=== PATIENT | male | born 1995 | race African-American/Black ===

== ENCOUNTER 2018-03-04 06:37 | Emergency (ER) | payer OTHER ==
[2018-03-04] VITALS (19 sets, daily range): BP systolic 113–145; BP diastolic 42–98
[~2018-03-04] VITALS: Ht 175.3 cm; Wt 83.9 kg
[2018-03-04] MEDS ORDERED: LORazepam Inj 2mg/ml 1ml IV ONE (06:45)
[2018-03-04] MEDS ORDERED: DiphenhydrAMINE 50mg/ml Inj IVP ONE (06:45)
[2018-03-04] MEDS ORDERED: Haloperidol 5mg/ml Inj IM ONE (06:45)
--- NOTE | 2018-03-04 06:48 | Emergency Room Report ---
History of Present Illness General Chief Complaint: Behavioral Complaint Source: Patient, EMS Present Illness HPI Patient is brought in by police department and paramedics Patient has history of schizophrenia and was acting erratically and bizarre has not been taking his medications Family was concerned and called paramedics Patient presents in handcuffs and is extremely aggressive There was no reports of suicidal or homicidal thought, however the patient's thought process is somewhat erratic, and history of present illness is significantly limited Allergies: Coded Allergies: No Known Allergies (Unverified , 03/04/18) Patient History Limited by: medical condition Past Medical History: see triage record Pertinent Family History: none Reviewed Nursing Documentation: PMH: Agreed; PSxH: Agreed Review of Systems All Other Systems: limited - Other than the ones mentioned in the history of present illness all others are reviewed however they do stay limited due to the patient's mental status Physical Exam Sp02 EP Interpretation: reviewed, normal General Appearance: moderate distress - Agitated Head: normocephalic, atraumatic Eyes: bilateral eye PERRL, bilateral eye EOMI ENT: normal pharynx Neck: full range of motion, supple Respiratory: chest non-tender, lungs clear Cardiovascular #1: normal peripheral pulses, regular rate, rhythm Gastrointestinal: non tender, soft, no mass Musculoskeletal: normal inspection Neurologic: alert, responsive Psychiatric: other - agitated, yelling Skin: no rash, warm/dry Lymphatic: no adenopathy Medical Decision Making Restraint Reassesment Aslhey Lynn DO, have personally evaluated this patient. Laboratory tests have been reviewed and addressed accordingly. The patient is deemed to present a danger to themselves and/or others. This is based on the exam, history ( provided by patient, EMS/[employer] and/or family) and observed or reported behavior. Attempts for non-invasive measures have been considered and/or attempted, however, have been futile. It is in the best interest of the nursing staff, the patient, and others involved in this patient's care that behavioral restraints be applied. Patient evaluation reveals the following: Diagnostic Impression: Primary Impression: Behavioral disorder Additional Impression: Medical clearance for psychiatric admission ER Course Complex with multiple differentials considered Patient had extensive blood work initiated Patient is marijuana positive otherwise all blood work appropriate levels Patient continues to rest well And at this time is medically cleared for further psychiatric evaluation Labs Test 03/04/18 07:30 03/04/18 09:18 White Blood Count 5.4 K/UL (4.8-10.8) Red Blood Count 4.36 M/UL (4.70-6.10) Hemoglobin 12.0 G/DL (14.2-18.0) Hematocrit 37.9 % (42.0-52.0) Mean Corpuscular Volume 87 FL (80-99) Mean Corpuscular Hemoglobin 27.6 PG (27.0-31.0) Mean Corpuscular Hemoglobin Concent 31.8 G/DL (32.0-36.0) Red Cell Distribution Width 14.1 % (11.6-14.8) Platelet Count 247 K/UL (150-450) Mean Platelet Volume 6.4 FL (6.5-10.1) Neutrophils (%) (Auto) 68.6 % (45.0-75.0) Lymphocytes (%) (Auto) 21.2 % (20.0-45.0) Monocytes (%) (Auto) 7.2 % (1.0-10.0) Eosinophils (%) (Auto) 1.9 % (0.0-3.0) Basophils (%) (Auto) 1.1 % (0.0-2.0) Sodium Level 139 MMOL/L (136-145) Potassium Level 4.0 MMOL/L (3.5-5.1) Chloride Level 105 MMOL/L (98-107) Carbon Dioxide Level 22 MMOL/L (21-32) Anion Gap 12 mmol/L (5-15) Blood Urea Nitrogen 11 mg/dL (7-18) Creatinine 1.1 MG/DL (0.55-1.30) Estimat Glomerular Filtration Rate > 60 mL/min (>60) Glucose Level 83 MG/DL (74-106) Calcium Level 9.2 MG/DL (8.5-10.1) Total Bilirubin 0.4 MG/DL (0.2-1.0) Aspartate Amino Transf (AST/SGOT) 22 U/L (15-37) Alanine Aminotransferase (ALT/SGPT) 34 U/L (12-78) Alkaline Phosphatase 44 U/L (46-116) Total Protein 7.8 G/DL (6.4-8.2) Albumin 4.0 G/DL (3.4-5.0) Globulin 3.8 g/dL Albumin/Globulin Ratio 1.1 (1.0-2.7) Salicylates Level 0.9 ug/mL (2.8-20) Acetaminophen Level < 2 MCG/ML (10-30) Serum Alcohol < 3 mg/dL Urine Opiates Screen Negative (NEGATIVE) Urine Barbiturates Screen Negative (NEGATIVE) Phencyclidine (PCP) Screen Negative (NEGATIVE) Urine Amphetamines Screen Negative (NEGATIVE) Urine Benzodiazepines Screen Negative (NEGATIVE) Urine Cocaine Screen Negative (NEGATIVE) Urine Marijuana (THC) Screen Positive (NEGATIVE) Status: improved Disposition: XFER TO PSYCH HOSP/UNIT Condition: Improved Ashley Lerma DO Mar 04, 2018 06:48
[2018-03-04 07:54] LABS: BASOPHILS % (AUTO) 1.1 % (0.0-2.0); EOSINOPHILS % (AUTO) 1.9 % (0.0-3.0); HEMATOCRIT 37.9 % (42.0-52.0); LYMPHOCYTES % (AUTO) 21.2 % (20.0-45.0); MEAN CORPUSCULAR VOLUME 87 FL (80-99); MONOCYTES % (AUTO) 7.2 % (1.0-10.0); NEUTROPHILS % (AUTO) 68.6 % (45.0-75.0); PLATELET COUNT 247 K/UL (150-450); RED BLOOD COUNT 4.36 M/UL (4.70-6.10); RED CELL DISTRIBUTION WIDTH 14.1 % (11.6-14.8); WHITE BLOOD COUNT 5.4 K/UL (4.8-10.8)
[2018-03-04 08:22] LABS: ANION GAP 12 mmol/L (5-15); BLOOD UREA NITROGEN 11 mg/dL (7-18); CALCIUM 9.2 MG/DL (8.5-10.1); CARBON DIOXIDE 22 MMOL/L (21-32); CHLORIDE 105 MMOL/L (98-107); CREATININE 1.1 MG/DL (0.55-1.30); SODIUM 139 MMOL/L (136-145)
[2018-03-04 08:26] LABS: ALANINE AMINOTRANSFERASE 34 U/L (12-78); ALBUMIN/GLOBULIN RATIO 1.1 (1.0-2.7); ALKALINE PHOSPHATASE 44 U/L (46-116); ASPARTATE AMINO TRANSFERASE 22 U/L (15-37); BILIRUBIN,TOTAL 0.4 MG/DL (0.2-1.0)
[2018-03-04] MEDS ORDERED: BENZTROPINE ME0.5 MG PO (12:01)
[2018-03-04] MEDS ORDERED: RISPERDAL2 MG ORAL (12:01)
[2018-03-05 03:15] VITALS: BP 110/70
[2018-03-05 07:59] VITALS: BP 135/94
--- NOTE | 2018-03-05 10:40 | Consultation ---
History of Present Illness General Date patient seen: Mar 05, 2018 Chief Complaint: Behavioral Complaint Present Illness HPI 22 yo aa male with hx of schizophrenia and cannabis use who was bib [employer]. the pt has been off his meds for some time. the pt is not suicidal or homicidal. He was laughing inappropriately. the pt was calm during my eval. the pt initially disagreed and was reluctant to take the haldol dec. the pt agreed later and received the dec Allergies: Coded Allergies: No Known Allergies (Unverified , 03/04/18) Medication History Scheduled Benztropine Mesylate* (Cogentin*), 2 MG PO BID, (Reported) Risperidone (Risperidone), 2 MG ORAL DAILY Risperidone* (Risperdal*), 2 MG ORAL DAILY, (Reported) Patient History Limited by: medical condition History Provided By: Patient, Medical Record Healthcare decision maker Resuscitation status Advanced Directive on File Past Medical/Surgical History Past Medical/Surgical History: (1) Behavioral disorder (2) Medical clearance for psychiatric admission Review of Systems Psychiatric: Reports: prior hx, anxiety, depressed feelings, emotional problems , hallucinations Physical Exam General Appearance: no apparent distress, alert Neurologic: oriented x 3, responsive, depressed affect Last 24 Hour Vital Signs Date Time Temp Pulse Resp B/P (MAP) Pulse Ox O2 Delivery O2 Flow Rate FiO2 03/05/18 07:59 98.4 90 17 135/94 99 Room Air 98.4 03/05/18 03:15 97.9 75 17 110/70 98 Room Air 97.9 03/04/18 23:15 98.2 83 17 113/57 98 Room Air 98.2 03/04/18 19:22 98.1 82 17 138/71 98 Room Air 98.1 03/04/18 18:41 97.9 90 17 142/66 100 Room Air 97.9 03/04/18 16:36 97.7 76 16 132/81 100 Room Air 97.7 03/04/18 14:29 98.0 80 15 117/60 98 Room Air 98.0 03/04/18 12:00 98.1 75 11 145/80 100 Room Air 98.1 Intake and Output 03/04/18 03/05/18 19:00 07:00 Intake Total 300 ml 1000 ml Output Total 500 ml Balance -200 ml 1000 ml Intake Oral 300 ml 1000 ml Output Urine Total 500 ml # Voids 1 Height (Feet): 5 Height (Inches): 9.00 Weight (Pounds): 185 Assessment/Plan Status: stable Assessment/Plan schizophrenia haldol dec 100mg x1 time risperdal 2mg qhs the pt is not hold able the pt is not meeting the criteria for 5150 Charla Sesay MD Mar 05, 2018 10:40
[2018-03-05] MEDS ORDERED: RISPERIDONE2 MG ORAL (10:58)
[2018-03-05] MEDS ORDERED: Haloperidol Decanoate 50mg Inj IM ONE (11:30)
[2018-03-05 12:05] VITALS: BP 129/87
[2018-03-05 15:29] VITALS: BP 119/76
== END 2018-03-05 15:29 | disposition home or self-care (01) ==
LOC: EDBD 06:37 → EMR 07:24
DX: F91.9 Conduct disorder, unspecified (principal); F20.9 Schizophrenia, unspecified
CPT/HCPCS: 36415; 80053; 80307; 80329; 85025; 96372; 96374; 96375; 99284; J1200; J1630; J1631

== ENCOUNTER 2020-04-05 21:55 | Inpatient (IN) | payer MEDICARE, OTHER ==
[~2020-04-05] VITALS: Ht 175.3 cm; Wt 90.5 kg
[~2020-04-05 21:55] MED LIST: BENZTROPINE ME0.5 MG PO; RISPERDAL2 MG ORAL; RISPERIDONE2 MG ORAL; UNOBMED
[2020-04-05 22:05] VITALS: BP 144/88
--- NOTE | 2020-04-05 22:05 | NUR ---
ED Nurse Note: Pt brought into ED by [facility] 67 and [employer] for erractic behavior at home. Per [facility], on scene pt was acting extremely hostile and aggressive. Pt was kicking trash cans and punching car windows with his fists. Patient's mother called 911 because patient had also stated "I don't want to live in the world anymore". No suicidal plan noted at the moment. [employer] is placing patient on 5150 psych hold at this time due to suicidal statement and behavior. He is unable to guarantee his own safety and safety of others at this time. According to report from paramedics, pt has not been taking his medications. Pt has hx of schizophrenia and normally takes benzotropine, risperidone and divalproex. Due to behavior in the field, pt was given 5mg versed IM by [facility] collaborating supervising physician. Upon ED arrival, pt is in hand cuffs on the gurney; [employer] bedside. Pt is not cooperative and not following commands. Pt is rambling words currently and will not answer questions. Pt is crying and appears severely anxious. Unable to complete full assessment at this time. Will reassess when pt is calm. Pt placed in psych gown and belongings taken from pt. All psychiatric/suicidal precuations in place; safety measures met. RN bedside monitoring pt. Will continue to monitor for change in condition.
[2020-04-05] MEDS ORDERED: Haloperidol 5mg/ml Inj ONE (22:23)
[2020-04-05] MEDS ORDERED: LORazepam Inj 2mg/ml 1ml ONE (22:23)
[2020-04-05] MEDS ORDERED: DiphenhydrAMINE 50mg/ml Inj ONE (22:23)
[2020-04-05] MEDS ORDERED: DiphenhydrAMINE 50mg/ml Inj IM ONE (22:30)
[2020-04-05] MEDS ORDERED: LORazepam Inj 2mg/ml 1ml IM ONE (22:30)
[2020-04-05] MEDS ORDERED: Haloperidol 5mg/ml Inj IM ONE (22:30)
[2020-04-05 22:43] LABS: BASOPHILS % (AUTO) 1.9 % (0.0-2.0); EOSINOPHILS % (AUTO) 1.4 % (0.0-3.0); HEMATOCRIT 43.8 % (42.0-52.0); HEMOGLOBIN 14.2 G/DL (14.2-18.0); LYMPHOCYTES % (AUTO) 20.8 % (20.0-45.0); MEAN CORPUSCULAR VOLUME 87 FL (80-99); MONOCYTES % (AUTO) 9.8 % (1.0-10.0); NEUTROPHILS % (AUTO) 66.1 % (45.0-75.0); PLATELET COUNT 265 K/UL (150-450); RED BLOOD COUNT 5.05 M/UL (4.70-6.10); RED CELL DISTRIBUTION WIDTH 14.3 % (11.6-14.8); WHITE BLOOD COUNT 8.8 K/UL (4.8-10.8)
[2020-04-05 22:56] LABS: ALANINE AMINOTRANSFERASE 183 U/L (12-78); ALBUMIN 4.5 G/DL (3.4-5.0); ALBUMIN/GLOBULIN RATIO 0.9 (1.0-2.7); ALKALINE PHOSPHATASE 67 U/L (46-116); ANION GAP 16 mmol/L (5-15); ASPARTATE AMINO TRANSFERASE 224 U/L (15-37); BILIRUBIN,TOTAL 0.5 MG/DL (0.2-1.0); BLOOD UREA NITROGEN 37 mg/dL (7-18); CALCIUM 9.6 MG/DL (8.5-10.1); CARBON DIOXIDE 21 MMOL/L (21-32); CHLORIDE 94 MMOL/L (98-107); CREATININE 2.4 MG/DL (0.55-1.30); SODIUM 131 MMOL/L (136-145)
--- NOTE | 2020-04-05 23:05 | NUR ---
ED Nurse Note: Pt is sleeping at this time, NAD. All suicidial precuations in place with safety measures met. RN bedside monitoring pt.
--- NOTE | 2020-04-05 23:40 | NUR ---
ED Nurse Note: Patient BUN/creatinine elevated. Will administer IV fluids and redraw labs as ordered by ERMMitesh. Pt is not medically cleared for inpatient psych at this time.
--- NOTE | 2020-04-06 00:19 | Emergency Room Report ---
History of Present Illness General Chief Complaint: Behavioral Complaint Source: Patient, EMS, [employer] Enforcement Present Illness HPI 24-year-old male presents to ED for behavioral evaluation. Brought in by EMS in [employer] from home. Mother was concerned because patient appeared to be aggressive. History of schizophrenia and bipolar. Reportedly not compliant with his meds. Given Versed IM per EMS. Patient not cooperative with exam. Unwilling to state whether he used any drugs or if he is compliant with his medications. No other aggravating relieving factors. No other associated symptoms Allergies: Coded Allergies: No Known Allergies (Unverified , 03/04/18) UNABLE TO ASSESS (Unverified , 10/28/18) COVID-19 Screening Contact w/high risk pt: No Experienced COVID-19 symptoms?: No COVID-19 Testing performed HEMATOLOGIST: No Patient History Past Medical History: psych hx Past Surgical History: none Pertinent Family History: none Social History: Denies: smoking, alcohol use, drug use Immunizations: UTD Reviewed Nursing Documentation: PMH: Agreed; PSxH: Agreed Nursing Documentation-PMH History Of Psychiatric Problem: Yes - schizo, substance abuse Review of Systems All Other Systems: negative except mentioned in HPI Physical Exam Vital Signs Date Time Temp Pulse Resp B/P (MAP) Pulse Ox O2 Delivery O2 Flow Rate FiO2 04/05/20 22:01 98.1 89 22 144/88 (106) 97 Room Air Sp02 EP Interpretation: reviewed, normal General Appearance: GCS 15, non-toxic, other - agitated/combative Head: normocephalic, atraumatic Eyes: bilateral eye normal inspection, bilateral eye PERRL ENT: hearing grossly normal, normal pharynx, no angioedema, normal voice Neck: full range of motion, supple/symm/no masses Respiratory: chest non-tender, lungs clear, normal breath sounds, speaking full sentences Cardiovascular #1: regular rate, rhythm, no edema Cardiovascular #2: 2+ carotid (R), 2+ carotid (L), 2+ radial (R), 2+ radial (L) , 2+ dorsalis pedis (R), 2+ dorsalis pedis (L) Gastrointestinal: normal bowel sounds, non tender, soft, non-distended, no guarding, no rebound Rectal: deferred Genitourinary: normal inspection, no CVA tenderness Musculoskeletal: back normal, normal range of motion, gait/station normal, non- tender Neurologic: other - agitated Psychiatric: anxious, other - agitated Reflexes: 3+ bicep (R), 3+ bicep (L), 3+ tricep (R), 3+ tricep (L), 3+ knee (R) , 3+ knee (L) Skin: no rash Lymphatic: no adenopathy Medical Decision Making Diagnostic Impression: Primary Impression: Schizophrenia Qualified Codes: F20.9 - Schizophrenia, unspecified Additional Impression: Renal failure Qualified Codes: N17.9 - Acute kidney failure, unspecified ER Course 24-year-old male presents for psychiatric evaluation. Differentialschizophrenia, substance abuse, EtOH Placed on stretcher. After initial history and physical restraints applied. Patient given Haldol, Benadryl, Ativan. Labsno leukocytosis, hemoglobin/hematocrit stable, BUN/creatinine elevated. Drug screen positive for benzos and marijuana. Patient given multiple fluid boluses with BUN/creatinine remains elevated. patient cannot be medically cleared for PET eval Patient will be admitted to Dr. Yanes's service. IV hydration continued. Dr Sesay (psychiatry) will be consulted. diagnosis - schizophrenia, renal failure admitted to floor in serious condition Laboratory Tests Test 04/05/20 22:15 04/05/20 22:55 04/06/20 02:13 White Blood Count 8.8 K/UL (4.8-10.8) Red Blood Count 5.05 M/UL (4.70-6.10) Hemoglobin 14.2 G/DL (14.2-18.0) Hematocrit 43.8 % (42.0-52.0) Mean Corpuscular Volume 87 FL (80-99) Mean Corpuscular Hemoglobin 28.0 PG (27.0-31.0) Mean Corpuscular Hemoglobin Concent 32.3 G/DL (32.0-36.0) Red Cell Distribution Width 14.3 % (11.6-14.8) Platelet Count 265 K/UL (150-450) Mean Platelet Volume 9.5 FL (6.5-10.1) Neutrophils (%) (Auto) 66.1 % (45.0-75.0) Lymphocytes (%) (Auto) 20.8 % (20.0-45.0) Monocytes (%) (Auto) 9.8 % (1.0-10.0) Eosinophils (%) (Auto) 1.4 % (0.0-3.0) Basophils (%) (Auto) 1.9 % (0.0-2.0) Sodium Level 131 MMOL/L (136-145) L 137 MMOL/L (136-145) Potassium Level 4.0 MMOL/L (3.5-5.1) 3.3 MMOL/L (3.5-5.1) L Chloride Level 94 MMOL/L (98-107) L 103 MMOL/L (98-107) Carbon Dioxide Level 21 MMOL/L (21-32) 24 MMOL/L (21-32) Anion Gap 16 mmol/L (5-15) H 10 mmol/L (5-15) Blood Urea Nitrogen 37 mg/dL (7-18) H 35 mg/dL (7-18) H Creatinine 2.4 MG/DL (0.55-1.30) H 2.1 MG/DL (0.55-1.30) H Estimat Glomerular Filtration Rate 40.2 mL/min (>60) 46.9 mL/min (>60) Glucose Level 123 MG/DL (74-106) H 78 MG/DL (74-106) Calcium Level 9.6 MG/DL (8.5-10.1) 8.1 MG/DL (8.5-10.1) L Total Bilirubin 0.5 MG/DL (0.2-1.0) 0.4 MG/DL (0.2-1.0) Aspartate Amino Transf (AST/SGOT) 224 U/L (15-37) H 143 U/L (15-37) H Alanine Aminotransferase (ALT/SGPT) 183 U/L (12-78) H 133 U/L (12-78) H Alkaline Phosphatase 67 U/L (46-116) 46 U/L (46-116) Total Protein 9.3 G/DL (6.4-8.2) H 6.8 G/DL (6.4-8.2) Albumin 4.5 G/DL (3.4-5.0) 3.2 G/DL (3.4-5.0) L Globulin 4.8 g/dL 3.6 g/dL Albumin/Globulin Ratio 0.9 (1.0-2.7) L 0.9 (1.0-2.7) L Salicylates Level 4.5 ug/mL (2.8-20) Acetaminophen Level < 2 MCG/ML (10-30) L Serum Alcohol < 3 mg/dL Urine Opiates Screen Negative (NEGATIVE) Urine Barbiturates Screen Negative (NEGATIVE) Phencyclidine (PCP) Screen Negative (NEGATIVE) Urine Amphetamines Screen Negative (NEGATIVE) Urine Benzodiazepines Screen Positive (NEGATIVE) H Urine Cocaine Screen Negative (NEGATIVE) Urine Marijuana (THC) Screen Positive (NEGATIVE) H Last Vital Signs Date Time Temp Pulse Resp B/P (MAP) Pulse Ox O2 Delivery O2 Flow Rate FiO2 04/05/20 22:05 98.1 89 22 144/88 97 Room Air Status: improved Disposition: ADMITTED INPATIENT Condition: Serious Referrals: NOT CHOSEN IPA/,REFERRING (PCP) Jose Lopez MD Apr 06, 2020 00:19
--- NOTE | 2020-04-06 01:20 | NUR ---
ED Nurse Note: Patient is awake and crying at this time. He is still not receptive to answering all RN questions, but when asked if he wants to harm himself or others, patient states no. Patient reports he did not tell his mother he wanted to kill himself. Pt reoriented and explained situation. Provided with blanket for comfort and repositioned. RN bedside with safety measures in place; will continue to closely monitor.
[2020-04-06 02:33] LABS: ANION GAP 10 mmol/L (5-15); BLOOD UREA NITROGEN 35 mg/dL (7-18); CALCIUM 8.1 MG/DL (8.5-10.1); CARBON DIOXIDE 24 MMOL/L (21-32); CHLORIDE 103 MMOL/L (98-107); CREATININE 2.1 MG/DL (0.55-1.30); POTASSIUM 3.3 MMOL/L (3.5-5.1); SODIUM 137 MMOL/L (136-145)
[2020-04-06 02:38] LABS: ALANINE AMINOTRANSFERASE 133 U/L (12-78); ALBUMIN 3.2 G/DL (3.4-5.0); ALBUMIN/GLOBULIN RATIO 0.9 (1.0-2.7); ALKALINE PHOSPHATASE 46 U/L (46-116); ASPARTATE AMINO TRANSFERASE 143 U/L (15-37); BILIRUBIN,TOTAL 0.4 MG/DL (0.2-1.0)
[2020-04-06 03:00] VITALS: BP 123/73
--- NOTE | 2020-04-06 03:00 | NUR ---
ED Nurse Note: Pt woke up in a calm state requesting to use restroom. Pt provided with toileting. Pt also provided with oral fluids and nourishment. Pt is tolerating well and is not acting aggressive or erratic at this time. RN remains bedside; will continue to closely monitor.
--- NOTE | 2020-04-06 04:00 | NUR ---
ED Nurse Note: Patient is awake and alert. Patient is able to have calm conversation with RN. Pt is not displaying aggressive behavior at this time, but would note that impulse control is still poor. He is breathing normal and unlabored. RN bedside; all suicide precautions in place, will continue to closely monitor pt.
[2020-04-06] MEDS ORDERED: LORazepam Inj 2mg/ml 1ml ONE (04:33)
[2020-04-06] MEDS ORDERED: LORazepam Inj 2mg/ml 1ml IV ONE (04:45)
--- NOTE | 2020-04-06 04:50 | NUR ---
ED Nurse Note: Pt is stable for admission to [facility] unit at this time per ERMD. Pt is in no acute distress at time of leaving ED. Patient's breathing is normal and unlabored. Vital signs are stable. Patient taken to unit by RN and thao via [email or web address]. Pt took all belongings. IVs patent and intact.
--- NOTE | 2020-04-06 04:55 | NUR ---
NURSE NOTES: Received report from ARIE Garcia. Pt arrived to unit at 0455 via gurney from ED. No acute distress noted. Oriented to room/ unit. Iv intact and patent. Pt is not responding to questions. Refused vitals.Belonging checked. Side rails upx3. Call light within reach. Will continue to monitor
[2020-04-06] MEDS ORDERED: LORazepam Inj 2mg/ml 1ml IV PRN (05:00)
[2020-04-06] MEDS ORDERED: Miralax 17gm pkt ORAL PRN (05:00)
--- NOTE | 2020-04-06 05:38 | History and Physical ---
History of Present Illness General Reason for Hospitalization: Behavioral Complaint Present Illness HPI This is a 24yo M who reported via EMS for behavior disturbances. Patient was given Versed in route. He has a past medical history for schizophrenia. His mother was concerned due his agitation. Patient was placed on a 5150 and inpatient psychiatrist was consulted. He has associated symptoms for anxiety, non compliance on medications and agitation. His initial labs were mostly noncontributory despite an elevation of serum creatinine of 2.5mg/dl. He denies lithium. Patient was given IVF in ED with some improvement. Otherwise patient is admitted due to 5150. Allergies: Coded Allergies: No Known Allergies (Unverified , 03/04/18) UNABLE TO ASSESS (Unverified , 10/28/18) COVID-19 Screening Contact w/high risk pt: No Experienced COVID-19 symptoms?: No Medication History Scheduled Benztropine Mesylate* (Cogentin*), 2 MG PO BID, (Reported) Risperidone (Risperidone), 2 MG ORAL DAILY Risperidone* (Risperdal*), 2 MG ORAL DAILY, (Reported) Miscellaneous Medications Unable to Obtain Medications (Unable To Obtain Meds), (Reported) Patient History Healthcare decision maker Resuscitation status Advanced Directive on File Review of Systems Psychiatric: Reports: anxiety, emotional problems Physical Exam General Appearance: WD/WN, alert, mild distress Lines, tubes and drains: peripheral HEENT: normocephalic Neck: non-tender, normal alignment, supple Respiratory/Chest: chest wall non-tender, lungs clear Cardiovascular/Chest: normal peripheral pulses, normal rate, regular rhythm, no JVD Abdomen: normal bowel sounds, non tender, soft, no organomegaly Extremities: normal range of motion, non-tender Skin Exam: warm/dry Neurologic: pattern fitter II-XII grossly normal Last 24 Hour Vital Signs Date Time Temp Pulse Resp B/P (MAP) Pulse Ox O2 Delivery O2 Flow Rate FiO2 04/06/20 05:14 Room Air 04/06/20 04:50 98.3 78 18 128/77 98 Room Air 04/06/20 03:00 98.1 73 18 123/73 99 Room Air 04/05/20 22:05 98.1 89 22 144/88 97 Room Air 04/05/20 22:05 89 22 Room Air 04/05/20 22:01 98.1 89 22 144/88 (106) 97 Room Air Intake and Output 04/05/20 04/06/20 19:00 07:00 Intake Total 4300 ml Output Total 600 ml Balance 3700 ml Intake Oral 300 ml IV Total 4000 ml Output Urine Total 600 ml # Voids 1 Laboratory Tests Test 04/05/20 22:15 04/05/20 22:55 04/06/20 02:13 White Blood Count 8.8 K/UL (4.8-10.8) Red Blood Count 5.05 M/UL (4.70-6.10) Hemoglobin 14.2 G/DL (14.2-18.0) Hematocrit 43.8 % (42.0-52.0) Mean Corpuscular Volume 87 FL (80-99) Mean Corpuscular Hemoglobin 28.0 PG (27.0-31.0) Mean Corpuscular Hemoglobin Concent 32.3 G/DL (32.0-36.0) Red Cell Distribution Width 14.3 % (11.6-14.8) Platelet Count 265 K/UL (150-450) Mean Platelet Volume 9.5 FL (6.5-10.1) Neutrophils (%) (Auto) 66.1 % (45.0-75.0) Lymphocytes (%) (Auto) 20.8 % (20.0-45.0) Monocytes (%) (Auto) 9.8 % (1.0-10.0) Eosinophils (%) (Auto) 1.4 % (0.0-3.0) Basophils (%) (Auto) 1.9 % (0.0-2.0) Sodium Level 131 MMOL/L (136-145) L 137 MMOL/L (136-145) Potassium Level 4.0 MMOL/L (3.5-5.1) 3.3 MMOL/L (3.5-5.1) L Chloride Level 94 MMOL/L (98-107) L 103 MMOL/L (98-107) Carbon Dioxide Level 21 MMOL/L (21-32) 24 MMOL/L (21-32) Anion Gap 16 mmol/L (5-15) H 10 mmol/L (5-15) Blood Urea Nitrogen 37 mg/dL (7-18) H 35 mg/dL (7-18) H Creatinine 2.4 MG/DL (0.55-1.30) H 2.1 MG/DL (0.55-1.30) H Estimat Glomerular Filtration Rate 40.2 mL/min (>60) 46.9 mL/min (>60) Glucose Level 123 MG/DL (74-106) H 78 MG/DL (74-106) Calcium Level 9.6 MG/DL (8.5-10.1) 8.1 MG/DL (8.5-10.1) L Total Bilirubin 0.5 MG/DL (0.2-1.0) 0.4 MG/DL (0.2-1.0) Aspartate Amino Transf (AST/SGOT) 224 U/L (15-37) H 143 U/L (15-37) H Alanine Aminotransferase (ALT/SGPT) 183 U/L (12-78) H 133 U/L (12-78) H Alkaline Phosphatase 67 U/L (46-116) 46 U/L (46-116) Total Protein 9.3 G/DL (6.4-8.2) H 6.8 G/DL (6.4-8.2) Albumin 4.5 G/DL (3.4-5.0) 3.2 G/DL (3.4-5.0) L Globulin 4.8 g/dL 3.6 g/dL Albumin/Globulin Ratio 0.9 (1.0-2.7) L 0.9 (1.0-2.7) L Salicylates Level 4.5 ug/mL (2.8-20) Acetaminophen Level < 2 MCG/ML (10-30) L Serum Alcohol < 3 mg/dL Urine Opiates Screen Negative (NEGATIVE) Urine Barbiturates Screen Negative (NEGATIVE) Phencyclidine (PCP) Screen Negative (NEGATIVE) Urine Amphetamines Screen Negative (NEGATIVE) Urine Benzodiazepines Screen Positive (NEGATIVE) H Urine Cocaine Screen Negative (NEGATIVE) Urine Marijuana (THC) Screen Positive (NEGATIVE) H Height (Feet): 5 Height (Inches): 9.00 Weight (Pounds): 200 Medications Current Medications Medications (Trade) Dose Ordered Sig/Albert Route PRN Reason Start Time Stop Time Status Last Admin Dose Admin Acetaminophen (Tylenol) 650 mg Q4H PRN ORAL Mild Pain (Pain Scale 1-3) 04/06/20 05:00 05/06/20 04:59 Acetaminophen (Tylenol) 650 mg Q4H PRN ORAL Temp >100.5 04/06/20 05:00 05/06/20 04:59 Dextrose (Dextrose 50%) 25 ml Q30M PRN IV Hypoglycemia 04/06/20 05:00 07/05/20 04:59 Dextrose (Dextrose 50%) 50 ml Q30M PRN IV Hypoglycemia 04/06/20 05:00 07/05/20 04:59 Lorazepam (Ativan 2mg/ml 1ml) 0.5 mg Q4H PRN IV For Anxiety 04/06/20 05:00 04/13/20 04:59 Ondansetron HCl (Zofran) 4 mg Q6H PRN IVP Nausea & Vomiting 04/06/20 05:00 05/06/20 04:59 Polyethylene Glycol (Miralax) 17 gm HSPRN PRN ORAL Constipation 04/06/20 05:00 05/06/20 04:59 Risperidone (RisperDAL) 2 mg DAILY ORAL 04/06/20 09:00 05/21/20 08:59 Sodium 1,000 ml @ 100 mls/hr Q10H IV 04/06/20 06:00 05/06/20 05:59 Assessment/Plan Problem List: (1) Schizophrenia Assessment & Plan: ORDERS - Resume home medication - Ativan for agitation/anxiety - Appreciate Dr. Sesay recommendations ICD Codes: F20.9 - Schizophrenia, unspecified SNOMED: [id number] Qualifiers: Qualified Codes: F20.9 - Schizophrenia, unspecified (2) Renal failure Assessment & Plan: Some improvement with IVF likely an underlying prerenal component but will still needs a complete workup. ORDERS - Continue with 0.45% NS with 20meq kcl - UA with microscopic - Obtain UC - Obtain CK - BENTLEY to r/o obstrution - Repeat BMP in 24hrs ICD Codes: N19 - Unspecified kidney failure SNOMED: [id number] Qualifiers: Qualified Codes: N17.9 - Acute kidney failure, unspecified Santhosh Washington D.O. Apr 06, 2020 05:38
[2020-04-06] MEDS: 1/2NS w/KCl 20mEq 1000ml 1,000 ML IV SCH ×2 (06:00→16:00)
--- NOTE | 2020-04-06 07:05 | NUR ---
NURSE NOTES: Received report from Olesya RN, pt sleeping , breaths regular unlabored, no s/s of distress on RA . I.V access on RT hand 20G , with i.v fluids , patent asymptomatic intact , bed in low locked position , side rails upX2, call light with in reach , will continue to Monitor
--- NOTE | 2020-04-06 07:47 | NUR ---
NURSE HAND-OFF: Important Events on Shift:Pt ignoring questions. Refused vitals Patient Status: stable Diet: Reg Pending Orders: Pending Results/Labs: urinalysis/ [employer]&CMP on 04/07 Pending MD notification: Latest Vital Signs: Temperature 98.3 , Pulse 78 , B/P 128 /77 , Respiratory Rate 18 , O2 SAT 98 , Room Air, O2 Flow Rate . Vital Sign Comment: Latest Helton Fall Score: 0 Fall Risk: Low Risk Safety Measures: Call light Within Reach, Bed Alarm , Side Rails Side Rails x2, Bed position Low and Locked. Fall Precautions: Report given to ARIE Mcadams.
[2020-04-06 08:00] VITALS: BP 123/63
[2020-04-06 08:37] LABS: CREATINE KINASE 4381 U/L (26-308)
--- NOTE | 2020-04-06 10:25 | NUR ---
NURSE NOTES: Pt anxiouus and requesting to leave and go home, explained to rthe pt that h Addendum: 04/06/20 at 1914 by Pema Griffin RN NURSE NOTES: Pt anxious, and pacing in the room , provided remote to pt to watch tv but still it did not help, explained to pt that he was unstable to go home but insisted that he had to go, i got the PRN Ativan and pt refused the medication, pt attempted to get on the elevator, notified security and they came up, and attempted to calm pt down, but was unsuccessful , notified charge nurse about pt condition i called and spoke with DR Holden regarding pt change of condition, told me to call DR Sesay
--- NOTE | 2020-04-06 10:32 | NUR ---
NURSE NOTES: Called and spoke with DR Sesay, regarding pt condition and explained pt behavior to DR. NOAM Kim orders received and carried
--- NOTE | 2020-04-06 10:40 | NUR ---
NURSE NOTES: called and left msg for DR Sesay regarding pt attempt to ,leave AMA
[2020-04-06] MEDS ORDERED: LORazepam 1mg tab ORAL PRN (10:45)
--- NOTE | 2020-04-06 11:31 | NUR ---
NURSE NOTES: Patient eloped unit. Called code [place]. Textile Designer and security notified. Spoke to transportation director regarding 5150 hold and patient. Per special investigation unit investigator: when patient admit to hospital, they are not on hold anymore.
--- NOTE | 2020-04-06 11:36 | NUR ---
NURSE NOTES: Security brought patient back to unit. Provide reality orientation and educate importance of treatment and staying hospital. Patient still trying to leave unit. Notified animal control supervisor. Will notify .
--- NOTE | 2020-04-06 11:40 | General Progress Note ---
Progress Note Progress Note I assumed care of this patient. I agree with plan of care. I did extensive chart review of vitals, labs, flowcharts, documents, imaging. I also had multiple conversations with patients mother to obtain history. Consulted Psych and nephrology. I spent 30 minutes on chart review as above with additional time examine the patient. Jacob Holden M.D. Apr 06, 2020 11:40
--- NOTE | 2020-04-06 11:41 | NUR ---
NURSE NOTES: Received call back from Dr Sesay, orders for cocktail received and carried
[2020-04-06] MEDS ORDERED: DiphenhydrAMINE 50mg/ml Inj IM SCH (11:45)
[2020-04-06] MEDS ORDERED: LORazepam Inj 2mg/ml 1ml IM SCH (11:45)
[2020-04-06] MEDS ORDERED: Haloperidol 5mg/ml Inj IM SCH (11:45)
--- NOTE | 2020-04-06 11:46 | NUR ---
TRACK WALKER NOTE Pt presents as A&O 3x and restless. Pt was unable to focus on the questions and SW redirected pt several times. Pt resides w/ his mother at [address] , [place] [address]. RUDS positive for Benzo and THC. PT reports tobacco use. Per chart review, pt has hx of Schizophrenia. Pt denies SI/HI. Emergency contact listed as his mother, Gilda Goldman [phone]. Pt does not share any foster care social worker concerns/needs at this time.
[2020-04-06 12:00] VITALS: BP 115/74
--- NOTE | 2020-04-06 13:10 | NUR ---
CASE MANAGEMENT: INITIAL REVIEW 24YR OLD MALE BIBA FROM HOME CC:BEHAVIOR COMPLAINTS; SI:SUICIDAL IDEATION WITH PLAN. RENAL FAILURE 98.1 89 22 144/88 97% ON RA NA+131 CL-94 ANION GAP 16 BUN/CREAT 37/2.4 BG 123 AST/ALT 224/183 IS:BENADRYL IM X1 HALDOL IM X1 ATIVAN IM X1 IVF NS BOLUS X4 \: 3E MED SURG UNIT CASE MANAGEMENT: REVIEW 04/06/20 SI:SUICIDAL IDEATION WITH PLAN. RENAL FAILURE . RHABDOMYOLYSIS 98.8.3 78 18 128/77 98% ON RA CK 4381 K+3.3 BUN/CREAT 35/2.1 CA+8.1 AST/ALT 143/133 ALB 3.2 IS:BENADRYL IM X1 HALDOL IM X1 ATIVAN IM X1 IV NS @100ML/HR RISPERIDONE PO QD ATIVAN Q4HR/PRN \: 3E MED SURG UNIT PLAN: HYDRATE SW CONSULT NEURO CHECK BEHAVIOR CHECKS
--- NOTE | 2020-04-06 13:16 | Consultation ---
History of Present Illness General Chief Complaint: Behavioral Complaint Present Illness HPI 24yo M who reported via EMS for behavior disturbances. Patient was given Versed in route. He has a past medical history for schizophrenia. His mother was concerned due his agitation. Patient was placed on a 5150 and inpatient psychiatrist was consulted. He has associated symptoms for anxiety, non compliance on medications and agitation. His initial labs were mostly noncontributory despite an elevation of serum creatinine of 2.5mg/dl. He denies lithium. Patient was given IVF in ED with some improvement. Otherwise patient is admitted due to 5150. Allergies: Coded Allergies: No Known Allergies (Unverified , 03/04/18) UNABLE TO ASSESS (Unverified , 10/28/18) Medication History Scheduled Benztropine Mesylate* (Cogentin*), 2 MG PO BID, (Reported) Risperidone (Risperidone), 2 MG ORAL DAILY Risperidone* (Risperdal*), 2 MG ORAL DAILY, (Reported) Miscellaneous Medications Unable to Obtain Medications (Unable To Obtain Meds), (Reported) Patient History Healthcare decision maker Resuscitation status Advanced Directive on File Physical Exam Last 24 Hour Vital Signs Date Time Temp Pulse Resp B/P (MAP) Pulse Ox O2 Delivery O2 Flow Rate FiO2 04/06/20 09:00 Room Air 04/06/20 05:14 Room Air 04/06/20 04:50 98.3 78 18 128/77 98 Room Air 04/06/20 03:00 98.1 73 18 123/73 99 Room Air 04/05/20 22:05 98.1 89 22 144/88 97 Room Air 04/05/20 22:05 89 22 Room Air 04/05/20 22:01 98.1 89 22 144/88 (106) 97 Room Air Intake and Output 04/05/20 04/06/20 18:59 06:59 Intake Total 4350 ml Output Total 600 ml Balance 3750 ml Intake Oral 350 ml IV Total 4000 ml Output Urine Total 600 ml # Voids 2 Laboratory Tests Test 04/05/20 22:15 04/05/20 22:55 04/06/20 02:13 White Blood Count 8.8 K/UL (4.8-10.8) Red Blood Count 5.05 M/UL (4.70-6.10) Hemoglobin 14.2 G/DL (14.2-18.0) Hematocrit 43.8 % (42.0-52.0) Mean Corpuscular Volume 87 FL (80-99) Mean Corpuscular Hemoglobin 28.0 PG (27.0-31.0) Mean Corpuscular Hemoglobin Concent 32.3 G/DL (32.0-36.0) Red Cell Distribution Width 14.3 % (11.6-14.8) Platelet Count 265 K/UL (150-450) Mean Platelet Volume 9.5 FL (6.5-10.1) Neutrophils (%) (Auto) 66.1 % (45.0-75.0) Lymphocytes (%) (Auto) 20.8 % (20.0-45.0) Monocytes (%) (Auto) 9.8 % (1.0-10.0) Eosinophils (%) (Auto) 1.4 % (0.0-3.0) Basophils (%) (Auto) 1.9 % (0.0-2.0) Sodium Level 131 MMOL/L (136-145) L 137 MMOL/L (136-145) Potassium Level 4.0 MMOL/L (3.5-5.1) 3.3 MMOL/L (3.5-5.1) L Chloride Level 94 MMOL/L (98-107) L 103 MMOL/L (98-107) Carbon Dioxide Level 21 MMOL/L (21-32) 24 MMOL/L (21-32) Anion Gap 16 mmol/L (5-15) H 10 mmol/L (5-15) Blood Urea Nitrogen 37 mg/dL (7-18) H 35 mg/dL (7-18) H Creatinine 2.4 MG/DL (0.55-1.30) H 2.1 MG/DL (0.55-1.30) H Estimat Glomerular Filtration Rate 40.2 mL/min (>60) 46.9 mL/min (>60) Glucose Level 123 MG/DL (74-106) H 78 MG/DL (74-106) Calcium Level 9.6 MG/DL (8.5-10.1) 8.1 MG/DL (8.5-10.1) L Total Bilirubin 0.5 MG/DL (0.2-1.0) 0.4 MG/DL (0.2-1.0) Aspartate Amino Transf (AST/SGOT) 224 U/L (15-37) H 143 U/L (15-37) H Alanine Aminotransferase (ALT/SGPT) 183 U/L (12-78) H 133 U/L (12-78) H Alkaline Phosphatase 67 U/L (46-116) 46 U/L (46-116) Total Protein 9.3 G/DL (6.4-8.2) H 6.8 G/DL (6.4-8.2) Albumin 4.5 G/DL (3.4-5.0) 3.2 G/DL (3.4-5.0) L Globulin 4.8 g/dL 3.6 g/dL Albumin/Globulin Ratio 0.9 (1.0-2.7) L 0.9 (1.0-2.7) L Salicylates Level 4.5 ug/mL (2.8-20) Acetaminophen Level < 2 MCG/ML (10-30) L Serum Alcohol < 3 mg/dL Urine Opiates Screen Negative (NEGATIVE) Urine Barbiturates Screen Negative (NEGATIVE) Phencyclidine (PCP) Screen Negative (NEGATIVE) Urine Amphetamines Screen Negative (NEGATIVE) Urine Benzodiazepines Screen Positive (NEGATIVE) H Urine Cocaine Screen Negative (NEGATIVE) Urine Marijuana (THC) Screen Positive (NEGATIVE) H Total Creatine Kinase 4381 U/L (26-308) H Height (Feet): 5 Height (Inches): 9.00 Weight (Pounds): 199 Medications Current Medications Medications (Trade) Dose Ordered Sig/Albert Route PRN Reason Start Time Stop Time Status Last Admin Dose Admin Acetaminophen (Tylenol) 650 mg Q4H PRN ORAL Mild Pain (Pain Scale 1-3) 04/06/20 05:00 05/06/20 04:59 Acetaminophen (Tylenol) 650 mg Q4H PRN ORAL Temp >100.5 04/06/20 05:00 05/06/20 04:59 Dextrose (Dextrose 50%) 25 ml Q30M PRN IV Hypoglycemia 04/06/20 05:00 07/05/20 04:59 Dextrose (Dextrose 50%) 50 ml Q30M PRN IV Hypoglycemia 04/06/20 05:00 07/05/20 04:59 Heparin Sodium (Porcine) (Heparin 5000 units/ml) 5,000 units EVERY 12 HOURS SUBQ 04/06/20 21:00 05/21/20 20:59 Lorazepam (Ativan) 2 mg Q4H PRN ORAL Anxiety and agitation 04/06/20 10:45 04/13/20 10:44 04/06/20 10:46 Ondansetron HCl (Zofran) 4 mg Q6H PRN IVP Nausea & Vomiting 04/06/20 05:00 05/06/20 04:59 Polyethylene Glycol (Miralax) 17 gm HSPRN PRN ORAL Constipation 04/06/20 05:00 05/06/20 04:59 Risperidone (RisperDAL) 2 mg DAILY ORAL 04/06/20 09:00 05/21/20 08:59 04/06/20 09:33 Sodium 1,000 ml @ 100 mls/hr Q10H IV 04/06/20 06:00 05/06/20 05:59 04/06/20 06:00 Shivani Weeks M.D. Apr 06, 2020 13:16
[2020-04-06 16:00] VITALS: BP 106/54
--- NOTE | 2020-04-06 18:35 | NUR ---
NURSE NOTES: Patient yelling and said "Fuck let me go home. " Patient smashed phone and throw bed linen on the floor. Try to bring patient back to unit but patient behave aggressively. Patient took elevator and left unit. Call security and notified patient trying to leave hospital.
--- NOTE | 2020-04-06 18:40 | NUR ---
NURSE NOTES: Spoke to [place] from [place] Department of mental health regarding patient's behavior and elopement. Called [place] police department but not able to speak to paper baling machine operator and on hold.
--- NOTE | 2020-04-06 19:14 | Neurology Progress Note ---
Interim History Interim History Interim History 4yo M who reported via EMS for behavior disturbances. Patient was given Versed in route. He has a past medical history for schizophrenia. His mother was concerned due his agitation. Patient was placed on a 5150 and inpatient psychiatrist was consulted. He has associated symptoms for anxiety, non compliance on medications and agitation. His initial labs were mostly noncontributory despite an elevation of serum creatinine of 2.5mg/dl. He denies lithium. Patient was given IVF in ED with some improvement. Otherwise patient is admitted due to 5150. Objective Physical Exam Last Vital Signs Date Time Temp Pulse Resp B/P (MAP) Pulse Ox O2 Delivery O2 Flow Rate FiO2 04/06/20 16:00 98.0 65 15 106/54 (71) 98 04/06/20 09:00 Room Air Laboratory Tests Test 04/05/20 22:15 04/05/20 22:55 04/06/20 02:13 White Blood Count 8.8 K/UL (4.8-10.8) Red Blood Count 5.05 M/UL (4.70-6.10) Hemoglobin 14.2 G/DL (14.2-18.0) Hematocrit 43.8 % (42.0-52.0) Mean Corpuscular Volume 87 FL (80-99) Mean Corpuscular Hemoglobin 28.0 PG (27.0-31.0) Mean Corpuscular Hemoglobin Concent 32.3 G/DL (32.0-36.0) Red Cell Distribution Width 14.3 % (11.6-14.8) Platelet Count 265 K/UL (150-450) Mean Platelet Volume 9.5 FL (6.5-10.1) Neutrophils (%) (Auto) 66.1 % (45.0-75.0) Lymphocytes (%) (Auto) 20.8 % (20.0-45.0) Monocytes (%) (Auto) 9.8 % (1.0-10.0) Eosinophils (%) (Auto) 1.4 % (0.0-3.0) Basophils (%) (Auto) 1.9 % (0.0-2.0) Sodium Level 131 MMOL/L (136-145) L 137 MMOL/L (136-145) Potassium Level 4.0 MMOL/L (3.5-5.1) 3.3 MMOL/L (3.5-5.1) L Chloride Level 94 MMOL/L (98-107) L 103 MMOL/L (98-107) Carbon Dioxide Level 21 MMOL/L (21-32) 24 MMOL/L (21-32) Anion Gap 16 mmol/L (5-15) H 10 mmol/L (5-15) Blood Urea Nitrogen 37 mg/dL (7-18) H 35 mg/dL (7-18) H Creatinine 2.4 MG/DL (0.55-1.30) H 2.1 MG/DL (0.55-1.30) H Estimat Glomerular Filtration Rate 40.2 mL/min (>60) 46.9 mL/min (>60) Glucose Level 123 MG/DL (74-106) H 78 MG/DL (74-106) Calcium Level 9.6 MG/DL (8.5-10.1) 8.1 MG/DL (8.5-10.1) L Total Bilirubin 0.5 MG/DL (0.2-1.0) 0.4 MG/DL (0.2-1.0) Aspartate Amino Transf (AST/SGOT) 224 U/L (15-37) H 143 U/L (15-37) H Alanine Aminotransferase (ALT/SGPT) 183 U/L (12-78) H 133 U/L (12-78) H Alkaline Phosphatase 67 U/L (46-116) 46 U/L (46-116) Total Protein 9.3 G/DL (6.4-8.2) H 6.8 G/DL (6.4-8.2) Albumin 4.5 G/DL (3.4-5.0) 3.2 G/DL (3.4-5.0) L Globulin 4.8 g/dL 3.6 g/dL Albumin/Globulin Ratio 0.9 (1.0-2.7) L 0.9 (1.0-2.7) L Salicylates Level 4.5 ug/mL (2.8-20) Acetaminophen Level < 2 MCG/ML (10-30) L Serum Alcohol < 3 mg/dL Urine Opiates Screen Negative (NEGATIVE) Urine Barbiturates Screen Negative (NEGATIVE) Phencyclidine (PCP) Screen Negative (NEGATIVE) Urine Amphetamines Screen Negative (NEGATIVE) Urine Benzodiazepines Screen Positive (NEGATIVE) H Urine Cocaine Screen Negative (NEGATIVE) Urine Marijuana (THC) Screen Positive (NEGATIVE) H Total Creatine Kinase 4381 U/L (26-308) H Head: normocophalic Neck: no rigidity Neurologic Exam Mental Status: awake, alert Objective more clam less agitated paranoia Impression/Recommendations Problems: (1) Renal failure (2) Schizophrenia Diagnostic Impression Encephalopathy, likely uncontrolled schizophrenia Also TREVON, metabolic - Resume home medication - zyprexa PRN - Ativan for agitation/anxiety Lino Luevano MD Apr 06, 2020 19:14
--- NOTE | 2020-04-06 19:28 | NUR ---
NURSE NOTES: Finally able to speak to [place] police department Network Technician #[id number]. Made Missing person police report.
--- NOTE | 2020-04-06 19:30 | NUR ---
NURSE NOTES: Spoke to Gilda (patient's mom) that patient just arrived to home. She scared and requested to call police due to aggressive behavior. Called [place] police department and on hold.
--- NOTE | 2020-04-06 19:51 | NUR ---
NURSE NOTES: Spoke to [place] police department turbo operator #[id number]. Made police report that patient's mom scared and feeling not safe with son. Given home address and phone number. [employer] [id number] will dispatch police to address.
[2020-04-06] MEDS ORDERED: Heparin 5000 units/ml inj SUBQ SCH (21:00)
[2020-04-06] MEDS ORDERED: Depakote 500mg tab ORAL SCH (21:00)
--- NOTE | 2020-04-06 23:12 | Consultation ---
History of Present Illness General Date patient seen: Apr 05, 2020 Chief Complaint: Behavioral Complaint Referring physician: avery Reason for Consultation: ams Present Illness HPI 4yo M who reported via EMS for behavior disturbances. Patient was given Versed in route. He has a past medical history for schizophrenia. His mother was concerned due his agitation. Patient was placed on a 5150 and inpatient psychiatrist was consulted. He has associated symptoms for anxiety, non compliance on medications and agitation. His initial labs were mostly noncontributory despite an elevation of serum creatinine of 2.5mg/dl. He denies lithium. Patient was given IVF in ED with some improvement. Otherwise patient is admitted due to 5150. Allergies: Coded Allergies: No Known Allergies (Unverified , 03/04/18) UNABLE TO ASSESS (Unverified , 10/28/18) Medication History Scheduled Benztropine Mesylate* (Cogentin*), 2 MG PO BID, (Reported) Risperidone (Risperidone), 2 MG ORAL DAILY Risperidone* (Risperdal*), 2 MG ORAL DAILY, (Reported) Miscellaneous Medications Unable to Obtain Medications (Unable To Obtain Meds), (Reported) Patient History Healthcare decision maker Resuscitation status Advanced Directive on File Physical Exam General Appearance: alert, confused Lines, tubes and drains: peripheral HEENT: PERRL Neck: supple Respiratory/Chest: lungs clear Breasts: no masses Cardiovascular/Chest: no gallop/murmur Abdomen: no mass Extremities: normal inspection Skin Exam: warm/dry Neurologic: alert Lymphatic: anterior cervical Physical Exam Narrative agitated Last 24 Hour Vital Signs Date Time Temp Pulse Resp B/P (MAP) Pulse Ox O2 Delivery O2 Flow Rate FiO2 04/06/20 16:00 98.0 65 15 106/54 (71) 98 04/06/20 12:00 98.0 84 18 115/74 (88) 98 04/06/20 09:00 Room Air 04/06/20 08:00 97.5 70 18 123/63 (83) 100 04/06/20 05:14 Room Air 04/06/20 04:50 98.3 78 18 128/77 98 Room Air 04/06/20 03:00 98.1 73 18 123/73 99 Room Air Intake and Output 04/05/20 04/06/20 19:00 07:00 Intake Total 4350 ml Output Total 600 ml Balance 3750 ml Intake Oral 350 ml IV Total 4000 ml Output Urine Total 600 ml # Voids 2 Laboratory Tests Test 04/06/20 02:13 Sodium Level 137 MMOL/L (136-145) Potassium Level 3.3 MMOL/L (3.5-5.1) L Chloride Level 103 MMOL/L (98-107) Carbon Dioxide Level 24 MMOL/L (21-32) Anion Gap 10 mmol/L (5-15) Blood Urea Nitrogen 35 mg/dL (7-18) H Creatinine 2.1 MG/DL (0.55-1.30) H Estimat Glomerular Filtration Rate 46.9 mL/min (>60) Glucose Level 78 MG/DL (74-106) Calcium Level 8.1 MG/DL (8.5-10.1) L Total Bilirubin 0.4 MG/DL (0.2-1.0) Aspartate Amino Transf (AST/SGOT) 143 U/L (15-37) H Alanine Aminotransferase (ALT/SGPT) 133 U/L (12-78) H Alkaline Phosphatase 46 U/L (46-116) Total Creatine Kinase 4381 U/L (26-308) H Total Protein 6.8 G/DL (6.4-8.2) Albumin 3.2 G/DL (3.4-5.0) L Globulin 3.6 g/dL Albumin/Globulin Ratio 0.9 (1.0-2.7) L Height (Feet): 5 Height (Inches): 9.00 Weight (Pounds): 199 Assessment/Plan Problem List: (1) Renal failure ICD Codes: N19 - Unspecified kidney failure SNOMED: 69403087 Qualifiers: Qualified Codes: N17.9 - Acute kidney failure, unspecified (2) Schizophrenia ICD Codes: F20.9 - Schizophrenia, unspecified SNOMED: [id number] Qualifiers: Qualified Codes: F20.9 - Schizophrenia, unspecified Assessment/Plan: Encephalopathy, likely uncontrolled schizophrenia Also TREVON, metabolic - Resume home medication - zyprexa PRN - Ativan for agitation/anxiety Lino Luevano MD Apr 06, 2020 23:12
--- NOTE | 2020-04-07 01:45 | Consultation ---
DATE OF CONSULTATION: 04/06/2020 CONSULTING PHYSICIAN: Charla Sesay MD. HISTORY OF PRESENT ILLNESS: This is a 24-year-old black male with a history of schizophrenia who has been admitted to the hospital for medical stabilization. Patient was agitated and he was placed on a 5150. Upon evaluation, patient is confused, was unable to answer the questions, was severely agitated, wanted to leave. He was not cleared by medical team due to medical instability. He received a cocktail on the unit for combative behavior. PAST PSYCHIATRIC HISTORY: Schizophrenia. PAST MEDICAL HISTORY: Nonsignificant. ALLERGIES: No known drug allergies. SUBSTANCE ABUSE HISTORY: No known history of illicit drug use or alcohol. His system was positive for marijuana, THC, and benzodiazepine. MENTAL STATUS EXAMINATION: Patient is alert, oriented times self, place. Mood was agitated. Affect is flat. Thought process is disorganized. Thought content, no suicidal or homicidal ideation. Cognition is impaired. Insight and judgment impaired. ASSESSMENT: [place] I Acute metabolic encephalopathy. [place] II Deferred. [place] III Electrolyte imbalance. [place] IV Low. [place] V 30. PLAN: 1. Patient should be discharged when medically cleared as the patient was given a cocktail. 2. Start the patient on risperidone. 3. Discussed with the nurse. Charla Sesay M.D. DR: AURA JOB#: [id number] CC:
--- NOTE | 2020-04-07 17:40 | Discharge Summary ---
Discharge Summary Discharge Summary _ DATE OF ADMISSION: 04/06/2012 DATE OF DISCHARGE: 04/06/2020 Patient left AGAINST MEDICAL ADVICE 24 years old male REASON FOR ADMISSION: [] 24 years old male with past medical history for schizophrenia, brought by legal services manager to ER due to behavioral disturbances. Patient received Versed in route to the hospital. His mother was called paramedics and she was concern of to do of his agitation. Patient was placed on 5150. Inpatient psychiatry is consulted. Patient had associated symptoms of anxiety noncompliance with medication and agitation. Initial labs are mostly noncontributory except evidence of renal failure BUN 37 , creatinine 2.4. AST 224 ALT 183 denies even using [place]. In emergency department patient received IV fluids with some improvement CONSULTANTS: neurologist Dr. Luevano mink slicer Dr. Weeks psychiatrist [facility] COURSE: Patient admitted to medical surgical floor patient started on the IV hydration with a potassium. Urine studies were ordered. Urine renal ultrasound was ordered. Neurologist followed. Patient started on Zyprexa and Ativan as needed. Per neurologist patient had encephalopathy likely due to uncontrolled schizophrenia as well as the metabolic component due to acute kidney injury. Psychiatry seen and evaluated patient patient received psychiatric cocktail. Psychiatrist cleared patient for discharge when medically stable. Patient started on Risperdal. Denies day creatinine from 2.4 down to 2.1. LFTs were closely monitored and trending down : AST from 2 24-1 43 ALT from 1 83-1 33. CK elevated 4381. Potassium was replaced. In the evenin patient eloped security was notified nurse contacted the mother patient arrived home safely mother was concerned due to his aggressive behavior and Police Department the railway switch operator and make police report stating the father patient's mother was scared and feel felt not safe with the son. FINAL DIAGNOSES: Schizophrenia Renal failure Acute metabolic encephalopathy Transaminitis Electrolyte imbalance encephalopathy likely due to uncontrolled schizophrenia and probably metabolic due to acute TREVON I have been assigned to dictate discharge summary for this account. I was not involved in the patient's management. Radha Sparrow NP Apr 07, 2020 17:40
== END 2020-04-06 18:36 | disposition left against medical advice (07) | DRG 682 ==
LOC: EDUNIT# 21:55 → EDBD 21:55 → EMR 22:13 → 3E 04-06 03:45 → EDBEDREQ 04-06 04:02
DX: N17.9 Acute kidney failure, unspecified (principal); G93.41 Metabolic encephalopathy; F20.9 Schizophrenia, unspecified; R74.0 Nonspecific elevation of levels of transaminase and lactic acid dehydrogenase [LDH]; E87.8 Other disorders of electrolyte and fluid balance, not elsewhere classified
CPT/HCPCS: 36415; 80053; 80307; 82550; 85025; 96360; 96361; 96372; 99285; G0480; J7030